=== PATIENT | female | born 1980 | race Caucasian/White ===

== ENCOUNTER 2017-11-29 17:24 | Emergency (ER) | payer OTHER ==
[~2017-11-29] VITALS: Ht 165.1 cm; Wt 77.1 kg
[2017-11-29] MEDS ORDERED: LOPRESSOR25 PO (19:15)
[2017-11-29] MEDS ORDERED: DULOXETINE HCL30 MG PO (19:15)
[2017-11-29] MEDS ORDERED: OMEPRAZOLE 20 M20 MG PO (19:16)
[2017-11-29] MEDS ORDERED: NORTRIPTYLINE H10 M1 GT (19:16)
[2017-11-29] MEDS ORDERED: BUTALB-APAP-CA1 EACH PO (19:26)
[2017-11-29 19:52] VITALS: BP 135/87
== END 2017-11-29 19:51 | disposition home or self-care (01) ==
LOC: ER 17:24
DX: G43.909 Migraine, unspecified, not intractable, without status migrainosus (principal); Z90.89 Acquired absence of other organs; Z88.8 Allergy status to other drugs, medicaments and biological substances; Z88.4 Allergy status to anesthetic agent

== ENCOUNTER 2017-12-01 20:00 | Emergency (ER) | payer OTHER ==
[~2017-12-01] VITALS: Ht 165.1 cm; Wt 77.1 kg
[~2017-12-01 20:00] MED LIST: BUTALB-APAP-CA1 EACH PO; DULOXETINE HCL30 MG PO; LOPRESSOR25 PO; NORTRIPTYLINE H10 M1 GT; OMEPRAZOLE 20 M20 MG PO
[2017-12-01 20:46] LABS: URINE BILIRUBIN NEGATIVE (Negative); URINE BLOOD 2+ (Negative); URINE CLARITY CLEAR; URINE COLOR YELLOW; URINE GLUCOSE-RANDOM* NEGATIVE (Negative); URINE KETONES NEGATIVE (Negative); URINE LEUKOCYTES-REFLEX NEGATIVE (Negative); URINE NITRITE-REFLEX NEGATIVE (Negative); URINE PROTEIN (DIPSTICK) 3+ (Negative); URINE SPECIFIC GRAVITY 1.025 (1.005-1.035); URINE UROBILINOGEN 0.2 E.U./dl (0.2-1.0)
[2017-12-01 20:54] LABS: CASTS None Seen /LPF (None Seen); CRYSTALS None Seen /LPF (None Seen); SQUAMOUS 0-3 Few /LPF (0-3); URINE WBC-REFLEX 0-5 Rare /HPF (0-5)
[2017-12-01 20:55] LABS: BACTERIA-REFLEX 1-9 Few /HPF (None Seen); URINE RBC 0-2 Rare /HPF (0-2)
[2017-12-01 21:19] LABS: BASOPHILS 0.7 % (0.0-2.0); EOSINOPHILS 0.8 % (0.0-3.0); HEMOGLOBIN 12.2 gm/dL (12.0-15.0); LYMPHOCYTES 32.1 % (24.0-44.0); MCH 30.5 pg (26.0-34.0); MCV 89.6 fL (80.0-100.0); MONOCYTES 11.4 % (1.0-8.0); PLATELET COUNT 337 thou/uL (150-400); RBC 4.01 mil/uL (4.20-5.00); RDW 14.8 % (10.5-14.5); WBC 7.2 thou/uL (4.0-11.0)
[2017-12-01 21:26] LABS: CALCIUM 9.4 mg/dL (8.5-10.1); CREATININE 0.8 mg/dL (0.6-1.0); POTASSIUM 3.3 mmol/L (3.5-5.1)
[2017-12-01] MEDS ORDERED: HYDROCODONE-AP1 EAC6 PO (22:09)
[2017-12-01] MEDS ORDERED: MACROBID 100 M100 M1 PO (22:15)
[2017-12-01 23:00] VITALS: BP 136/94
== END 2017-12-01 23:41 | disposition home or self-care (01) ==
LOC: ER 20:00
PROVIDERS: Physician Assistant
DX: N39.0 Urinary tract infection, site not specified (principal); N83.202 Unspecified ovarian cyst, left side; G43.909 Migraine, unspecified, not intractable, without status migrainosus; Z90.49 Acquired absence of other specified parts of digestive tract; Z88.8 Allergy status to other drugs, medicaments and biological substances

== ENCOUNTER 2017-12-07 14:10 | Emergency (ER) | payer OTHER ==
[~2017-12-07 14:10] MED LIST changes: +HYDROCODONE-AP1 EAC6 PO; +MACROBID 100 M100 M1 PO
[2017-12-08] MEDS ORDERED: BUTALB-APAP-CA1 EACH PO (00:15)
== END 2017-12-07 16:57 | disposition home or self-care (01) ==
LOC: ER 14:10
DX: G43.909 Migraine, unspecified, not intractable, without status migrainosus (principal); Z88.8 Allergy status to other drugs, medicaments and biological substances; Z90.49 Acquired absence of other specified parts of digestive tract; Z87.442 Personal history of urinary calculi

== ENCOUNTER 2017-12-07 21:58 | Emergency (ER) | payer OTHER ==
[~2017-12-07] VITALS: Ht 165.1 cm; Wt 77.1 kg
[2017-12-08] MEDS ORDERED: BUTALB-APAP-CA1 EACH PO (00:15)
[2017-12-08 01:39] VITALS: BP 146/92
== END 2017-12-08 01:30 | disposition home or self-care (01) ==
LOC: ER 21:58
DX: G43.909 Migraine, unspecified, not intractable, without status migrainosus (principal); Z88.8 Allergy status to other drugs, medicaments and biological substances; Z90.49 Acquired absence of other specified parts of digestive tract; Z87.442 Personal history of urinary calculi

== ENCOUNTER 2017-12-31 20:25 | Emergency (ER) | payer OTHER ==
[~2017-12-31] VITALS: Ht 165.1 cm; Wt 75.3 kg
[2017-12-31] MEDS ORDERED: IMITREX4 MG/0.5 M SUBQ (20:44)
[2017-12-31 22:00] VITALS: BP 147/95
== END 2017-12-31 22:00 | disposition home or self-care (01) ==
LOC: ER 20:25
DX: S16.1XXA Strain of muscle, fascia and tendon at neck level, initial encounter (principal); G44.209 Tension-type headache, unspecified, not intractable; G43.909 Migraine, unspecified, not intractable, without status migrainosus; I10 Essential (primary) hypertension; Z90.49 Acquired absence of other specified parts of digestive tract; Z88.8 Allergy status to other drugs, medicaments and biological substances; V89.2XXA Person injured in unspecified motor-vehicle accident, traffic, initial encounter; Y93.89 Activity, other specified; Y92.89 Other specified places as the place of occurrence of the external cause; Y99.8 Other external cause status

== ENCOUNTER 2018-01-12 19:01 | Emergency (ER) | payer OTHER ==
[~2018-01-12] VITALS: Ht 165.1 cm; Wt 72.6 kg
[~2018-01-12 19:01] MED LIST changes: +IMITREX4 MG/0.5 M SUBQ; -NORTRIPTYLINE H10 M1 GT; +NORTRIPTYLINE H10 M1 PO
[2018-01-12 20:12] VITALS: BP 117/79
== END 2018-01-12 20:14 | disposition home or self-care (01) ==
LOC: ER 19:01
DX: G43.909 Migraine, unspecified, not intractable, without status migrainosus (principal); I10 Essential (primary) hypertension; Z90.49 Acquired absence of other specified parts of digestive tract; Z88.8 Allergy status to other drugs, medicaments and biological substances

== ENCOUNTER 2018-01-26 19:34 | Emergency (ER) | payer OTHER ==
[~2018-01-26] VITALS: Ht 165.1 cm; Wt 72.6 kg
[2018-01-26] MEDS ORDERED: ALTACE5 MG PO (19:55)
[2018-01-26] MEDS ORDERED: SYNTHROID50 MCG PO (19:55)
[2018-01-26] MEDS ORDERED: WELLBUTRIN SR150 MG PO (19:56)
[2018-01-26 20:53] VITALS: BP 105/80
== END 2018-01-26 20:57 | disposition home or self-care (01) ==
LOC: ER 19:34
DX: R51 Headache (principal); I10 Essential (primary) hypertension; Z90.49 Acquired absence of other specified parts of digestive tract; Z88.8 Allergy status to other drugs, medicaments and biological substances; Z88.6 Allergy status to analgesic agent

== ENCOUNTER 2018-02-09 07:55 | Emergency (ER) | payer OTHER ==
[~2018-02-09] VITALS: Ht 167.6 cm; Wt 70.8 kg
[~2018-02-09 07:55] MED LIST changes: +ALTACE5 MG PO; +SYNTHROID50 MCG PO; +WELLBUTRIN SR150 MG PO
[2018-02-09] MEDS ORDERED: BUTALB-APAP-CA1 EACH PO (09:10)
[2018-02-09 09:25] VITALS: BP 141/96
[2018-02-10] MEDS ORDERED: KEFLEX500 M1 PO (09:22)
== END 2018-02-09 09:25 | disposition home or self-care (01) ==
LOC: ER 07:55
DX: R51 Headache (principal); I10 Essential (primary) hypertension; Z88.6 Allergy status to analgesic agent; Z88.8 Allergy status to other drugs, medicaments and biological substances; Z90.49 Acquired absence of other specified parts of digestive tract

== ENCOUNTER 2018-02-10 09:05 | Emergency (ER) | payer OTHER ==
[~2018-02-10] VITALS: Ht 165.1 cm; Wt 72.6 kg
[2018-02-10] MEDS ORDERED: KEFLEX500 M1 PO (09:22)
[2018-02-10 09:51] VITALS: BP 126/90
== END 2018-02-10 09:51 | disposition home or self-care (01) ==
LOC: ER 09:05
DX: H60.11 Cellulitis of right external ear (principal); G43.909 Migraine, unspecified, not intractable, without status migrainosus; I10 Essential (primary) hypertension; Z88.8 Allergy status to other drugs, medicaments and biological substances; Z90.49 Acquired absence of other specified parts of digestive tract

== ENCOUNTER 2018-03-21 04:32 | Emergency (ER) | payer OTHER ==
[~2018-03-21] VITALS: Ht 165.1 cm; Wt 72.6 kg
[~2018-03-21 04:32] MED LIST changes: +ATIVAN0.5 MG PO; +BACTRIM DS TAB1 EACH PO; +KEFLEX500 M1 PO; +NORCO 5-325 TA1 EACH PO
[2018-03-21 04:38] VITALS: BP 144/88
[2018-03-21] MEDS ORDERED: ONDANSETRON HCL4 M2 PO (04:41)
[2018-03-21] MEDS ORDERED: BUTALB-APAP-CA1 EACH PO (04:41)
[2018-03-21] MEDS ORDERED: DEPO-PROVE150 MG/11 IM (04:46)
== END 2018-03-21 05:04 | disposition home or self-care (01) ==
LOC: ER 04:32
DX: R51 Headache (principal); I10 Essential (primary) hypertension; F32.9 Major depressive disorder, single episode, unspecified; Z88.8 Allergy status to other drugs, medicaments and biological substances; Z88.6 Allergy status to analgesic agent; Z90.49 Acquired absence of other specified parts of digestive tract

== ENCOUNTER 2018-04-03 05:35 | Emergency (ER) | payer OTHER ==
[~2018-04-03] VITALS: Ht 165.1 cm; Wt 72.6 kg
[~2018-04-03 05:35] MED LIST changes: +DEPO-PROVE150 MG/11 IM; +ONDANSETRON HCL4 M2 PO
[2018-04-03 06:31] VITALS: BP 122/84
== END 2018-04-03 06:31 | disposition home or self-care (01) ==
LOC: ER 05:35
DX: G43.009 Migraine without aura, not intractable, without status migrainosus (principal); I10 Essential (primary) hypertension; F32.9 Major depressive disorder, single episode, unspecified; Z88.8 Allergy status to other drugs, medicaments and biological substances; Z88.6 Allergy status to analgesic agent; Z90.49 Acquired absence of other specified parts of digestive tract

== ENCOUNTER 2018-04-08 20:26 | Emergency (ER) | payer OTHER ==
[~2018-04-08] VITALS: Ht 165.1 cm; Wt 72.6 kg
[2018-04-08] MEDS ORDERED: BUTALB-APAP-CA1 EACH PO (21:09)
[2018-04-08 21:32] VITALS: BP 133/85
== END 2018-04-08 21:33 | disposition home or self-care (01) ==
LOC: ER 20:26
DX: G43.009 Migraine without aura, not intractable, without status migrainosus (principal); I10 Essential (primary) hypertension; Z88.8 Allergy status to other drugs, medicaments and biological substances

== ENCOUNTER 2018-04-09 10:02 | Emergency (ER) | payer OTHER ==
[~2018-04-09] VITALS: Ht 165.1 cm; Wt 72.6 kg
[2018-04-09 15:07] VITALS: BP 126/80
== END 2018-04-09 15:09 | disposition home or self-care (01) ==
LOC: ER 10:02
DX: R51 Headache (principal); I10 Essential (primary) hypertension; F32.9 Major depressive disorder, single episode, unspecified; Z90.49 Acquired absence of other specified parts of digestive tract; Z88.5 Allergy status to narcotic agent; Z88.6 Allergy status to analgesic agent; Z88.8 Allergy status to other drugs, medicaments and biological substances

== ENCOUNTER 2018-04-14 19:25 | Emergency (ER) | payer OTHER ==
[~2018-04-14] VITALS: Ht 165.1 cm; Wt 72.6 kg
[2018-04-14] MEDS ORDERED: NORFLEX100 MG PO (21:33)
[2018-04-14] MEDS ORDERED: LIDOCAINE PAIN1 EACH TOP (21:33)
[2018-04-14 21:53] VITALS: BP 131/90
== END 2018-04-14 21:55 | disposition home or self-care (01) ==
LOC: ER 19:25
DX: M54.5 Low back pain (principal); G43.909 Migraine, unspecified, not intractable, without status migrainosus; I10 Essential (primary) hypertension; F32.9 Major depressive disorder, single episode, unspecified; Z88.8 Allergy status to other drugs, medicaments and biological substances; Z90.49 Acquired absence of other specified parts of digestive tract; Z88.6 Allergy status to analgesic agent

== ENCOUNTER 2018-07-11 00:50 | Emergency (ER) | payer OTHER ==
[~2018-07-11] VITALS: Ht 165.1 cm; Wt 72.6 kg
[~2018-07-11 00:50] MED LIST changes: +LIDOCAINE PAIN1 EACH TOP; +NORFLEX100 MG PO
[2018-07-11 00:51] VITALS: BP 177/103
[2018-07-11] MEDS ORDERED: MAGIC MOUTHWASH SW&SWALLOW (01:04)
[2018-07-11] MEDS ORDERED: TRAMADOL 50 MG50 MG PO (01:04)
== END 2018-07-11 01:16 | disposition home or self-care (01) ==
LOC: ER 00:50
DX: K08.89 Other specified disorders of teeth and supporting structures (principal); I10 Essential (primary) hypertension; F32.9 Major depressive disorder, single episode, unspecified; G43.909 Migraine, unspecified, not intractable, without status migrainosus; Z90.49 Acquired absence of other specified parts of digestive tract; Z88.6 Allergy status to analgesic agent; Z88.8 Allergy status to other drugs, medicaments and biological substances

== ENCOUNTER 2018-09-15 14:31 | Emergency (ER) | payer OTHER ==
[~2018-09-15] VITALS: Ht 165.1 cm; Wt 72.6 kg
[~2018-09-15 14:31] MED LIST changes: +MAGIC MOUTHWASH SW&SWALLOW; +TRAMADOL 50 MG50 MG PO
[2018-09-15] MEDS ORDERED: BUTALB-APAP-CA1 EACH PO (16:41)
[2018-09-15 17:25] VITALS: BP 138/89
== END 2018-09-15 17:25 | disposition home or self-care (01) ==
LOC: ER 14:31
DX: G43.909 Migraine, unspecified, not intractable, without status migrainosus (principal); I10 Essential (primary) hypertension; Z88.6 Allergy status to analgesic agent; Z88.8 Allergy status to other drugs, medicaments and biological substances

== ENCOUNTER 2019-05-04 15:38 | Emergency (ER) | payer OTHER ==
[~2019-05-04] VITALS: Ht 165.1 cm; Wt 63.5 kg
[2019-05-04 15:39] VITALS: BP 117/85
[2019-05-04] MEDS ORDERED: MEDROLDOSEPACK PO (16:24)
[2019-05-04] MEDS ORDERED: ZPAK PO (16:24)
[2019-05-04] MEDS ORDERED: BUTALB-APAP-CA1 EACH PO (16:24)
== END 2019-05-04 16:31 | disposition home or self-care (01) ==
LOC: ER 15:38
DX: J32.9 Chronic sinusitis, unspecified (principal); G43.909 Migraine, unspecified, not intractable, without status migrainosus; I10 Essential (primary) hypertension; F32.9 Major depressive disorder, single episode, unspecified; Z90.49 Acquired absence of other specified parts of digestive tract; Z88.8 Allergy status to other drugs, medicaments and biological substances

== ENCOUNTER 2019-05-24 17:56 | Emergency (ER) | payer OTHER ==
[~2019-05-24] VITALS: Ht 165.1 cm; Wt 72.6 kg
[~2019-05-24 17:56] MED LIST changes: +MEDROLDOSEPACK PO; +ZPAK PO
[2019-05-24] MEDS ORDERED: BUTALB-APAP-CA1 EACH PO (19:32)
[2019-05-24 19:41] VITALS: BP 152/96
== END 2019-05-24 19:42 | disposition home or self-care (01) ==
LOC: ER 17:56
DX: G43.909 Migraine, unspecified, not intractable, without status migrainosus (principal); I10 Essential (primary) hypertension; J34.89 Other specified disorders of nose and nasal sinuses; F32.9 Major depressive disorder, single episode, unspecified; Z90.49 Acquired absence of other specified parts of digestive tract; Z88.8 Allergy status to other drugs, medicaments and biological substances